=== PATIENT | female | born 1965 ===

== ENCOUNTER 2016-11-19 01:21 | Emergency (ER) | payer MEDICARE ==
[2016-11-19 01:21] VITALS: BMI 30.9
[2016-11-19 01:29] VITALS: O2SAT 98
--- NOTE | 2016-11-19 01:51 | C.PDOC ---
History Of Present Illness The patient presents to the ED for evaluation of left hand pain which began prior to arrival. Patient state she accidentally tripped, fell, and hurt her left hand. Patient denies loss of consciousness and remembers the event. Patient denies head injury, extremity numbness/weakness. - HPI Time Seen by Provider: 11/19/16 01:51 Chief Complaint (Nursing): Trauma History Per: Patient History/Exam Limitations: no limitations Onset/Duration Of Symptoms: Hrs Injury Occurred (Timing): Just Before Arrival Location Of Injury: Left: Hand Severity: Mild Pain Scale Rating Of: 3 Recent travel outside of the [facility]: No Additional History Per: Patient - Fall Fall:Prior To Injury: Tripped Past Medical History Reviewed: Historical Data, Nursing Documentation, Vital Signs Vital Signs: Last Vital Signs Temp 98.8 F 11/19/16 02:47 Pulse 77 11/19/16 02:47 Resp 16 11/19/16 02:47 BP 125/81 11/19/16 02:47 Pulse Ox 98 11/19/16 03:06 - Medical History PMH: Anxiety, Asthma, Bipolar Disorder, Bronchitis, Depression, Gastrointestinal Ulcer Surgical History: Tonsillectomy Family History: States: Unknown Family Hx - Social History Hx Tobacco Use: No Hx Alcohol Use: No Hx Substance Use: No - Immunization History Hx Tetanus Toxoid Vaccination: Yes (not sure) Hx Influenza Vaccination: Yes Hx Pneumococcal Vaccination: Yes Review Of Systems Cardiovascular: Negative for: Chest Pain Respiratory: Negative for: Cough, Shortness of Breath Gastrointestinal: Negative for: Nausea, Vomiting, Abdominal Pain Musculoskeletal: Positive for: Hand Pain (left). Negative for: Arm Pain Skin: Negative for: Rash, Lesions, Jaundice, Bruising Neurological: Negative for: Weakness, Numbness, Other (head injury/LOC) Physical Exam - Physical Exam Appears: Non-toxic, No Acute Distress Skin: Warm, Dry Head: Normacephalic Eye(s): bilateral: Normal Inspection Oral Mucosa: Moist Neck: Supple Extremity: Normal ROM, Tenderness (dorsal aspect of left hand ), Capillary Refill (less than 2 seconds ) Pulses: Left Radial: Normal Neurological/Psych: Oriented x3 Gait: Steady ED Course And Treatment O2 Sat by Pulse Oximetry: 98 (on RA) Pulse Ox Interpretation: Normal Progress Note: left hand XR ordered, results are unremarkable for fractures or dislocations. Patient received Percocet PO. Posterior splint applied to affected area by me. Patient tolerated well. Orthopedic Time Out: Side verified, Site verified Procedure: Splint Type: Posterior Location: Left, Hand Consent obtained: Verbal Performed by: Attending Physician Location: Left Medical Decision Making Medical Decision Making: Upon provider reevaluation patient is feeling better, is medically stable, and requires no further treatment in the ED at this time. Patient will be discharged home with Rx . Counseling was provided and all questions were answered regarding diagnosis and need for follow up with dr monroe. There is agreement to discharge plan. Return if symptoms persist or worsen. Disposition Counseled Patient/Family Regarding: Studies Performed, Diagnosis, Need For Followup - Disposition Referrals: Papo Monroe III, MD [Staff Provider] - Disposition: HOME/ ROUTINE Disposition Time: 02:20 Condition: FAIR Prescriptions: oxyCODONE/Acetaminophen [Percocet 5/325 mg Tab] 1 tab PO QID PRN #10 tab PRN Reason: Pain Instructions: Wrist Injury (ED), Contusion in Adults (DC) Forms: [facility] ([place]) - Clinical Impression Clinical Impression: Hand contusion, Fall - Scribe Statement The provider has reviewed the documentation as recorded by the Scribe (Lakshmi Anderson) Provider Attestation: All medical record entries made by the Scribe were at my direction and personally dictated by me. I have reviewed the chart and agree that the record accurately reflects my personal performance of the history, physical exam, medical decision making, and the department course for this patient. I have also personally directed, reviewed, and agree with the discharge instructions and disposition.
[2016-11-19] MEDS ORDERED: Oxycodone/Acetaminophen 5/325 mg Tab PO STA (02:19)
[2016-11-19] MEDS ORDERED: Oxycodone/Acetaminophen 5/325 mg Tab ONE (02:46)
[2016-11-19 02:48] VITALS: BP 125/81; PULSE 77; RESP 16; TEMP 98.8
--- NOTE | 2016-11-19 09:51 | RAD ---
PROCEDURE: Left Hand Radiographs. HISTORY: Rule out fracture. COMPARISON: None. FINDINGS: BONES: Normal. No fracture. JOINTS: Normal. No osteoarthritic changes. SOFT TISSUES: Normal. OTHER FINDINGS: None. IMPRESSION: No evidence of acute displaced fracture nor dislocation. If symptoms persist, consider follow-up MRI.
== END 2016-11-19 02:49 | disposition home or self-care (01) ==
LOC: C.ER 01:21
DX: S60.222A Contusion of left hand, initial encounter (principal); W01.0XXA Fall on same level from slipping, tripping and stumbling without subsequent striking against object, initial encounter

== ENCOUNTER 2018-05-14 09:36 | Outpatient (CLI) | payer MEDICARE | END 2018-05-14 09:37 | disposition home or self-care (01) | LOC: C.RT 09:36 | DX: M34.9 Systemic sclerosis, unspecified (principal); J44.9 Chronic obstructive pulmonary disease, unspecified ==